=== PATIENT | male | born 1990 | race Caucasian/White ===

== ENCOUNTER 2018-07-26 07:21 | Outpatient (CLI) | payer OTHER ==
--- NOTE | 2018-07-26 10:24 | RAD ---
BIPHASIC ESOPHAGRAM: Date: 07/26/18 HISTORY: Reflux esophagitis, dysphagia. FINDINGS: Swallowing was grossly normal. There was unobstructed flow of contrast through the esophagus and into the stomach. No ulcer, stricture, mass, or diverticulum is seen. A 12 mm tablet passed promptly from the esophagus into the stomach. Severe spontaneous GE reflux was demonstrated in the supine position extending into the low neck. IMPRESSION: Severe GE reflux. POS: ROBERT
== END 2018-07-26 07:22 | disposition home or self-care (01) ==
LOC: RAD 07:21
PROVIDERS: ATTEND Internal Medicine Gastroenterology
DX: K21.0 Gastro-esophageal reflux disease with esophagitis (principal); R11.2 Nausea with vomiting, unspecified; R13.10 Dysphagia, unspecified
CPT/HCPCS: 74220